=== PATIENT | female | born 1965 | race African-American/Black ===

== ENCOUNTER 2016-10-15 11:54 | Emergency (ER) | payer MEDICARE, OTHER ==
[~2016-10-15] VITALS: Ht 175.3 cm; Wt 79.4 kg
[~2016-10-15 11:54] MED LIST: CEPH500T PO; HYDR-971 PO; ONDA4TAB10 SL
[2016-10-15 12:09] VITALS: BP 132/62
[2016-10-15] MEDS ORDERED: TETRACAINE 0.5% OPHTH SOLUTION 4ML BOTTLE. ONE (12:11)
[2016-10-15] MEDS ORDERED: TETRACAINE 0.5% OPHTH SOLUTION 4ML BOTTLE. OS ONE (12:15)
[2016-10-15] MEDS ORDERED: KETO5DRO72 OS (12:22)
[2016-10-15] MEDS ORDERED: POLY10DR3 EACHEYE (12:22)
--- NOTE | 2016-10-15 12:23 | PHYS DOC ---
Past History Past Medical History: Diabetes Past Surgical History: Other Smoking: Non-smoker Alcohol Use: None Drug Use: None Adult General Chief Complaint Chief Complaint: EYE PROBLEMS HPI HPI This is a 51-year-old female history of diabetes type 2 that is non-insulin- dependent presenting with left-sided eye pain and irritation that was noted yesterday with significant redness to the conjunctiva with some tearing. She denies any fever. There is no purulent discharge from the eye. She has history of this in the last several months that has resolved with steroid drops. She denies any blurring to her vision. She denies any significant headache. Patient is fully alert and oriented and nontoxic in appearance at this time. Review of Systems Review of Systems Constitutional: Denies fever or chills [] Eyes: Denies change in visual acuity, has redness, has eye pain [] HENT: Denies nasal congestion or sore throat [] Respiratory: Denies cough or shortness of breath [] Cardiovascular: No additional information not addressed in HPI [] GI: Denies abdominal pain, nausea, vomiting, bloody stools or diarrhea [] : Denies dysuria or hematuria [] Musculoskeletal: Denies back pain or joint pain [] Integument: Denies rash or skin lesions [] Neurologic: Denies headache, focal weakness or sensory changes [] Endocrine: Denies polyuria or polydipsia [] Current Medications Current Medications Current Medications Medications (Trade) Dose Ordered Sig/[facility] Start Time Stop Time Status Last Admin Dose Admin Tetracaine HCl (Tetracaine) 1 drop 1X ONCE 10/15/16 12:15 10/15/16 12:16 DC Allergies Allergies Allergies Coded Allergies Type Severity Reaction Last Updated Verified No Known Drug Allergies 09/19/13 No Physical Exam Physical Exam Constitutional: Well developed, well nourished, no acute distress, non-toxic appearance. [] HENT: Normocephalic, atraumatic, bilateral external ears normal, oropharynx moist, no oral exudates, nose normal. [] Eyes: PERRLA, EOMI, left conjunctiva injected, no discharge. [] Neck: Normal range of motion, no tenderness, supple, no stridor. [] Cardiovascular:Heart rate regular rhythm, no murmur [] Lungs & Thorax: Bilateral breath sounds clear to auscultation [] Abdomen: Bowel sounds normal, soft, no tenderness, no masses, no pulsatile masses. [] Skin: Warm, dry, no erythema, no rash. [] Back: No tenderness, no CVA tenderness. [] Extremities: No tenderness, no cyanosis, no clubbing, ROM intact, no edema. [] Neurologic: Alert and oriented X 3, normal motor function, normal sensory function, no focal deficits noted. [] Psychologic: Affect normal, judgement normal, mood normal. [] EKG EKG [] Radiology/Procedures Radiology/Procedures [] Course & Med Decision Making Course & Med Decision Making Pertinent Labs and Imaging studies reviewed. (See chart for details) This 51-year-old female who's having some left-sided conjunctiva irritation and had several drops of tetracaine instilled into the left eye and had a intraocular pressure of 4 mmHg. Her visual acuity was evaluated and found to be 20/25 in both eyes and the 20/30 in the left eye. She denies any trauma to the eye. Her eye exam revealed conjunctival injection but no other acute findings. I will be prescribing her a course of Polytrim drops as well as ketorolac drops for inflammation. She was given strict instruction to follow closely with her eye doctor, Isak Roach, in the next several days. Dragon Disclaimer Dragon Disclaimer This chart was dictated in whole or in part using Voice Recognition software in a busy, high-work load, and often noisy Emergency Department environment. It may contain unintended and wholly unrecognized errors or omissions. Departure Departure: Impression: Primary Impression: Conjunctivitis Disposition: 01 HOME, SELF-CARE Condition: STABLE Referrals: JOSE ADAMS DO, M[facility] (PCP) Patient Instructions: Eye - Viral Conjunctivitis Additional Instructions: Please take your eye drops as instructed and follow up closely with your eye doctor as discussed. Return to the ER immediately if you develop any worsening of your vision or develop any worsening of your pain. Scripts Ketorolac Tromethamine (KETOROLAC TROMETHAMINE) 5 Ml Drops 1 DROP OS QID, #5 ML Prov: CONNOR ROSS DO 10/15/16 Polymyxin B Sulf/Trimethoprim (POLYMYXIN B-TMP EYE DROPS) 10 Ml Drops 1 DROP EACHEYE QID, #10 ML Prov: CONNOR ROSS DO 10/15/16 CONNOR ROSS DO October 15, 2016 12:22
== END 2016-10-15 12:27 | disposition home or self-care (01) ==
LOC: ER 11:54
DX: H10.9 Unspecified conjunctivitis (principal); E11.9 Type 2 diabetes mellitus without complications
CPT/HCPCS: 99283